=== PATIENT | female | born 1995 | race Caucasian/White ===

== ENCOUNTER 2019-07-01 23:23 | Inpatient (IN) | payer OTHER ==
[2019-07-02 00:56] VITALS: BMI 26.3
--- NOTE | 2019-07-02 00:56 | HP ---
COWS - Scale Resting Pulse: 2= [place] 101-120 Sweatin= No chills or Flushing Restless Observation: 1= Difficult to Sit Still Pupil Size: 0= Normal to Room Light Bone or Joint Aches: 4=Acute Joint/Muscle Pain Runny Nose/ Eye Tearin= Nasal Congestion GI Upset > 30mins: 2= Nausea/Diarrhea Tremor Observation: 0= None Yawning Observation: 1= 1-2x During Session Anxiety or Irritability: 2=Irritable/Anxious Goose Flesh Skin: 0=Smooth Skin COWS Score: 13 CIWA Score Nausea/Vomitin-No Nausea/No Vomiting Muscle Tremors: None Anxiety: 4-Mod. Anxious/Guarded Agitation: 4-Moderately Restless Paroxysmal Sweats: No Perspiration Orientation: 0-Oriented Tacttile Disturbances: 0-None Auditory Disturbances: 0-None Visual Disturbances: 2-Mild Sensitivity Headache: 2-Mild CIWA-Ar Total Score: 12 - Admission Criteria OAS Guidelines: Admission for Medically Managed Detox: Requires at least one of the followin. CIWA greater than 12 2. Seizures within the past 24 hours 3. Delirium tremens within the past 24 hours 4. Hallucinations within the past 24 hours 5. Acute intervention needed for co occurring medical disorder 6. Acute intervention needed for co occurring psychiatric disorder 7. Severe withdrawal that cannot be handled at a lower level of care (continued vomiting, continued diarrhea, abnormal vital signs) requiring intravenous medication and/or fluids 8. Patient presents the following: CIWA greater than 12 Admission Criteria Met: Admission criteria met Admission ROS [facility] Chief Complaint: c/o withdrawal sx's. seeking detox Allergies/Adverse Reactions: Allergies Allergy/AdvReac Type Severity Reaction Status Date / Time No Known Allergies Allergy Verified 07/02/19 01:21 History of Present Illness: 24 Y.O. FEMALE WITH HX/O OPIOID AND BENZO DEPENDENCE HERE FOR DETOX. CLIENT IS REFERRED BY SELF. STATES THIS IS HER FIRST TIME IN INPATIENT TXMENT. PRESENT WITH C/O WITHDRAWAL SX'S. USE OF HEROIN IS DAILY ALONG WITH XANAX. LAST USE EARLIER TODAY. DENIES ANY SIGNIFICANT CLEAN TIME. DRUG ABUSE STARTED AT AGE OF 14. DENIES HX/O SEIZURE, DRUG OVERDOSE BUT DOES ADMIT TO BLACK OUTS. DENIES IVDU. LIVES WITH ROOMATES EMPLOYED, DRUG COURT Exam Limitations: Physical Impairment (AMBUALTES WITH A CANE) - Ebola screening Have you traveled outside of the country in the last 21 days: No (N) Have you had contact with anyone from an Ebola affected area: No Do you have a fever: No - Review of Systems Constitutional: Chills, Loss of Appetite, Malaise, Night Sweats, Changes in sleep EENT: reports: No Symptoms Reported Respiratory: reports: No Symptoms reported Cardiac: reports: No Symptoms Reported, Edema (BLE) GI: reports: Constipated (BOTH DIARRHEA AND CONSTIPATION), Diarrhea, Nausea, Poor Appetite, Poor Fluid Intake, Abdominal cramping : reports: Dysuria (BURNING) Musculoskeletal: reports: Back Pain, Joint Pain Integumentary: reports: No Symptoms Reported Neuro: reports: Headache, Unsteady Gait (AMBUALTES WITH CANE) Endocrine: reports: No Symptoms Reported Hematology: reports: No Symptoms Reported Psychiatric: reports: Orientated x3, Agitated (IRRITABLE), Anxious, Depressed ( DENIES SI) Other Systems: Reviewed and Negative Patient History - Patient Medical History Hx Anemia: No Hx Asthma: No Hx Chronic Obstructive Pulmonary Disease (COPD): No Hx Cancer: No Hx Cardiac Disorders: No Hx Congestive Heart Failure: No Hx Hypertension: No Hx Hypercholesterolemia: No Hx Pacemaker: No HX Cerebrovascular Accident: No Hx Seizures: No Hx Dementia: No Hx Diabetes: No Hx Gastrointestinal Disorders: No Hx Liver Disease: No Hx Genitourinary Disorders: No Hx Sexually Transmitted Disorders: No Hx Renal Disease (ESRD): No Hx Thyroid Disease: No Hx Human Immunodeficiency Virus (HIV): No Hx Hepatitis C: No Hx Depression: No Hx Suicide Attempt: Yes (LAST ATTEMPT AGE 12) Hx Bipolar Disorder: No Hx Schizophrenia: No - Patient Surgical History Past Surgical History: No - PPD History Previous Implant?: Yes Documented Results: Negative w/o proof Implanted On Prior [facility] Admission?: No PPD to be Administered?: Yes - Reproductive History Patient is a Female of Child Bearing Age (11 -55 yrs old): Yes LMP comment: 5 MONTHS AGO Patient : No (NEG [facility] [place]) - Smoking Cessation Smoking history: Current every day smoker Have you smoked in the past 12 months: Yes Aproximately how many cigarettes per day: 20 Cigars Per Day: 0 Hx Chewing Tobacco Use: No Initiated information on smoking cessation: Yes 'Breaking Loose' booklet given: 07/02/19 - Substance & Tx. History Hx Alcohol Use: No Hx Substance Use: Yes Substance Use Type: Marijuana, Opiates (FEN/OPI), Tranquilizers (XANAX) Hx Substance Use Treatment: No - Substances abused Heroin Substance route: Inhalation Frequency: Daily Amount used: 4 BAGS Age of first use: 23 Date of last use: 06/30/19 Alprazolam (Xanax) Substance route: Oral Frequency: Daily Amount used: 4MG Age of first use: 14 Date of last use: 06/30/19 Marijuana/Hashish Substance route: Smoking Frequency: 3-6 times per week Amount used: 1 JOINT Age of first use: 14 Date of last use: 06/27/19 Family Disease History - Family Disease History Family Disease History: Heart Disease: Father ( FOR [place]), Other: Father, Mother ( BY OVERDOSE) Admission Physical Exam [facility] - Physical General Appearance: Yes: Moderate Distress, Irritable, Anxious HEENTM: Yes: EOMI, Normocephalic, Normal Voice, ANNABEL, Pharynx Normal Respiratory: Yes: Chest Non-Tender, Lungs Clear, Normal Breath Sounds, No Respiratory Distress, No Accessory Muscle Use Neck: Yes: No masses,lesions,Nodules, Supple, Trachea in good position Breast: Yes: Breast Exam Deferred Cardiology: Yes: Regular Rhythm, Regular Rate, S1, S2 Abdominal: Yes: Normal Bowel Sounds, Non Tender, Soft Genitourinary: Yes: Burning, Itiching Back: Yes: Normal Inspection Musculoskeletal: Yes: Other (UNSTEADY AGIT AMBULATES WITH CANE) Extremities: Yes: Normal Range of Motion, Non-Tender, Tremors, Pedal Edema (BLE NOT PITTING EDEMA) Neurological: Yes: Fully Oriented, Alert, Motor Strength 5/5, Depressed Affect Integumentary: Yes: Dry, Warm, Other (GENERALIZED AREAS TO ARMS LEGS CHEST WITH ABRASION THAT ARE HEALING FROM CONSTANT SCRATCHING OF SELF) Lymphatic: Yes: Within Normal Limits - Diagnostic (1) Opioid dependence with withdrawal Current Visit: Yes Status: Acute (2) Sedative, hypnotic or anxiolytic dependence with withdrawal, uncomplicated Current Visit: Yes Status: Acute (3) Cannabis dependence, uncomplicated Current Visit: Yes Status: Acute (4) Nicotine dependence Current Visit: Yes Status: Chronic Qualifiers: Nicotine product type: cigarettes (5) Substance induced mood disorder Current Visit: Yes Status: Acute (6) At risk for dehydration due to poor fluid intake Current Visit: Yes Status: Acute (7) Picking own skin Current Visit: Yes Status: Acute (8) Dysuria Current Visit: Yes Status: Acute Cleared for Admission [facility] - Detox or Rehab [facility] Level of Care: Medically Managed Detox Regimen/Protocol: Methadone/Valium Claeared for Rehab Admission: No Breathalyzer - Breathalyzer Breathalyzer: 0 Vital Signs - Vital Signs Vital signs refused: No Temperature: 97.6 F Temperature source: Oral Pulse Rate: 106 Respiratory Rate: 16 Blood Pressure: 126/69 BP Location: Right Arm Blood Pressure position: Sitting - Height Height: 5 ft 2 in - Weight Weight: 65.317 kg Weight measurement method: Standing scale - BMI Body Mass Index (BMI): 26.3 - Bowel Function Bowel Movement: No POC Urine test - Control test control: Yes - Result Urine Test Results: Negative - NO line present Urine Drug Screen - Control Is test valid?: Yes - Results Drug screen NEGATIVE: No Urine drug screen results: THC-Marijuana, MET-Methamphetamine, AMP-Amphetamines , FEN-Fentanyl, MOP-Opiates, BZO-Benzodiazepines Inpatient Rehab Admission - Rehab Decision to Admit Inpatient rehab admission?: No
[2019-07-02] MEDS ORDERED: METHADONE HCL 10 MG TABLET (FOR DETOX USE ONLY) PO ONE (01:17)
[2019-07-02] MEDS ORDERED: MELATONIN 5 MG TABLETS PO PRN (01:17)
[2019-07-02] MEDS ORDERED: ONDANSETRON *ODT* 4 MG TABLET SL PRN (01:17)
[2019-07-02] MEDS ORDERED: P-EPHED 60MG/TRIPROLIDI 2.5MG TABLET PO PRN (01:17)
[2019-07-02] MEDS ORDERED: IBUPROFEN 400 MG TABLET (FP) PO PRN (01:17)
[2019-07-02] MEDS ORDERED: DICYCLOMINE HCL 10 MG CAPSULE PO PRN (01:17)
[2019-07-02] MEDS ORDERED: hydrOXYzine PAMOATE 25 MG CAPSULE (FP) PO PRN (01:17)
[2019-07-02] MEDS ORDERED: cloNIDine HCL 0.1 MG TABLET PO PRN (01:17)
[2019-07-02] MEDS ORDERED: BISMUTH SUBSALICYLATE 524 MG/30 ML UD PO PRN (01:17)
[2019-07-02] MEDS ORDERED: guaiFENesin 200 MG/10 ML 10 ML UNIT-DOSE CUPS PO PRN (01:17)
[2019-07-02] MEDS ORDERED: MAGNESIUM CITRATE 300 ML BOTTLE PO PRN (01:17)
[2019-07-02] MEDS ORDERED: MENTHOL/PHENOL 1 EACH UD MM PRN (01:17)
[2019-07-02] MEDS ORDERED: ACETAMINOPHEN 325 MG TABLET (FP) PO PRN ×2 (01:17)
[2019-07-02] MEDS ORDERED: MAGNESIUM HYDROX 2400MG/30ML ORAL SUSPENSION 30 ML CUP PO PRN (01:17)
[2019-07-02] MEDS ORDERED: MAG HYDROX/AL HYDROX/SIMETH 30 ML UNIT-DOSE CUP PO PRN (01:17)
[2019-07-02] MEDS: diazePAM 5 MG TABLET PO PRN ×3 (02:41→17:26)
[2019-07-02] MEDS: NICOTINE POLACRILEX 2 MG GUM BUC PRN ×5 (03:43→22:07)
[2019-07-02] MEDS: diazePAM 5 MG TABLET PO SCH ×3 (06:11→22:03)
[2019-07-02] MEDS ORDERED: METHADONE HCL 5 MG TABLET (FOR DETOX USE ONLY) PO ONE (10:00)
[2019-07-02] MEDS: PRENATAL VITAMINS W/ FOLIC ACID TABLET (FP) PO SCH (10:51)
[2019-07-02] MEDS: NICOTINE 21 MG/24 HOURS TOPICAL PATCH TD SCH (10:52)
[2019-07-02 10:57] LABS: HEMATOCRIT 33.7 % (32.4-45.2); HEMOGLOBIN 11.5 GM/dL (10.7-15.3); MEAN CELL VOLUME 91.2 fl (80-96); MEAN PLT VOLUME 7.3 fl (7.5-11.1); WHITE BLOOD COUNT 5.6 K/mm3 (4.0-10.0)
[2019-07-02 11:03] LABS: ALBUMIN 3.2 g/dl (3.4-5.0); BILIRUBIN,TOTAL 0.3 mg/dL (0.2-1); BLOOD UREA NITROGEN 11.3 mg/dL (7-18); CALCIUM 8.7 mg/dL (8.5-10.1); CREATININE 0.8 mg/dL (0.55-1.3); POTASSIUM 3.3 mmol/L (3.5-5.1)
[2019-07-02 11:22] LABS: PLATELET COUNT 423 K/MM3 (134-434)
--- NOTE | 2019-07-02 12:10 | PN ---
[facility] CIWA - CIWA Score Nausea/Vomitin-No Nausea/No Vomiting Muscle Tremors: None Anxiety: 4-Mod. Anxious/Guarded Agitation: 0-Normal Activity Paroxysmal Sweats: No Perspiration Orientation: 2-Disoriented Date<2 days Tacttile Disturbances: 1-Very Mild Itch/Numbness Auditory Disturbances: 2-Mild Harshness/Frighten Visual Disturbances: 3-Moderate Sensitivity Headache: 0-None Present CIWA-Ar Total Score: 12 S COWS - Scale Resting Pulse: 2= [place] 101-120 Sweatin= No chills or Flushing Restless Observation: 0= Sits Still Pupil Size: 0= Normal to Room Light Bone or Joint Aches: 2= Severe Diffuse Aches Runny Nose/ Eye Tearin= Nasal Congestion GI Upset > 30mins: 0= None Tremor Observation of Outstretched Hands: 0= None Yawning Observation: 1= 1-2x During Session Anxiety or Irritability: 2=Irritable/Anxious Goose Flesh Skin: 3=Piloerection COWS Score: 11 S Progress Note (SOAP) Subjective: Body Aches, Anxious, Nasal Congestion, Fatigue. Objective: PATIENT A & O X 2 (UNCERTAIN ABOUT CURRENT DAY / DATE). IN NO ACUTE DISTRESS. 07/02/19 12:12 Vital Signs Temperature 97.6 F 07/02/19 09:20 Pulse Rate 106 H 07/02/19 09:20 Respiratory Rate 18 07/02/19 09:20 Blood Pressure 112/77 07/02/19 09:20 O2 Sat by Pulse Oximetry (%) Laboratory Tests 07/02/19 07/02/19 08:00 08:00 WBC 5.6 RBC 3.70 Hgb 11.5 Hct 33.7 MCV 91.2 MCH 31.0 MCHC 34.0 RDW 13.0 Plt Count 423 MPV 7.3 L Sodium 140 Potassium 3.3 L Chloride 100 Carbon Dioxide 35 H Anion Gap 6 L BUN 11.3 Creatinine 0.8 Est GFR (CKD-EPI)AfAm 119.60 Est GFR (CKD-EPI)NonAf 103.19 Random Glucose 95 Calcium 8.7 Total Bilirubin 0.3 AST 38 H ALT 25 Alkaline Phosphatase 74 Total Protein 6.0 L Albumin 3.2 L LABS NOTED. Assessment: 07/02/19 12:14 WITHDRAWAL SYMPTOMS. HYPOKALEMIA. Plan: CONTINUE DETOX. K-DUR, 20 MEQ PO BID FOR LOW K LEVEL NOTED NO DETOX ADMISSION LABORATORY ASSESSMENT. REPEAT K LEVEL ORDERED FOR 07/04/2019 TO SEE IF ANY CHANGE IN COMPARISON TO DETOX ADMISSION K LEVEL.
[2019-07-02] MEDS: POTASSIUM CHLORIDE TABS 20 MEQ TABLET.ER (FP) PO SCH (17:26)
[2019-07-02] MEDS: METHOCARBAMOL 500 MG TABLET PO PRN (19:19)
--- NOTE | 2019-07-02 20:17 | PN ---
[facility] Progress Note Note: Patient is referred for swelling and pain to tke left lower leg. As per patient , this started yesterday but also reports having x-ray done at [facility] which was negative. The affected area is warm, pain is rated 7-8/10. She denies fever, chills, chest pain or SOB General Appearance: Mild distress PE Vital Signs 07/02/19 07/02/19 13:26 17:18 Temperature 97.7 F 96.8 F L Pulse Rate 104 H 97 H Respiratory 20 16 Rate Blood Pressure 99/55 L 102/64 Chest: Lungs clear in all field CVS:S1S12, RRR Ext: Swollen LLE, warm to touch, linear scratch reji to the collado Plan-Evaluation in the ED. Patient has refused to go to the ED Motrin increased to 600mg every 6hrs Encouraged to elevate the limb Monitoring ongoing
[2019-07-02] MEDS: THIAMINE HCL 100 MG TABLET (FP) PO SCH (22:03)
[2019-07-02] MEDS: IBUPROFEN 600 MG TABLET (FP) PO PRN (22:05)
[2019-07-03] MEDS: diazePAM 5 MG TABLET PO SCH ×2 (06:13→17:53)
[2019-07-03] MEDS: IBUPROFEN 600 MG TABLET (FP) PO PRN ×3 (06:14→17:56)
[2019-07-03] MEDS ORDERED: METHADONE HCL 10 MG TABLET (FOR DETOX USE ONLY) ONE (08:22)
[2019-07-03] MEDS ORDERED: METHADONE HCL 5 MG TABLET (FOR DETOX USE ONLY) ONE (08:23)
--- NOTE | 2019-07-03 09:05 | PN ---
[facility] CIWA - CIWA Score Nausea/Vomitin-No Nausea/No Vomiting Muscle Tremors: 2 Anxiety: 3 Agitation: 2 Paroxysmal Sweats: 1-Minimal Palms Moist Orientation: 0-Oriented Tacttile Disturbances: 0-None Auditory Disturbances: 0-None Visual Disturbances: 0-None Headache: 1-Very Mild CIWA-Ar Total Score: 9 BHS COWS - Scale Resting Pulse: 1= [place] 81-100 Sweatin= Chills/Flushing Restless Observation: 0= Sits Still Pupil Size: 0= Normal to Room Light Bone or Joint Aches: 1= Mild Discomfort Runny Nose/ Eye Tearin= Nasal Congestion GI Upset > 30mins: 1= Stomach Cramp Tremor Observation of Outstretched Hands: 2= Slight Tremor Visible Yawning Observation: 1= 1-2x During Session Anxiety or Irritability: 1=Feels Anxious/Irritable Goose Flesh Skin: 0=Smooth Skin COWS Score: 9 S Progress Note (SOAP) Subjective: 24 years old female admitted on 07/02/19 for acute benzo and opiate withdrawal sx management mild tremor sweating and joints and general muscles pain 3/10 doing well with valium and methadone detox regimen sitting on bed eating breakfast lower extremities mild indentation edema treated at [facility] ER +2 pedal pulses bilaterally ankles passive full range of motion denies pain during the motion no shortness of breath breathe even and ease Objective: 07/03/19 09:10 Vital Signs Temperature 97.0 F L 07/03/19 06:30 Pulse Rate 84 07/03/19 06:30 Respiratory Rate 18 07/03/19 06:30 Blood Pressure 102/67 07/03/19 06:30 O2 Sat by Pulse Oximetry (%) Laboratory Last Values WBC 5.6 K/mm3 (4.0-10.0) 07/02/19 08:00 RBC 3.70 M/mm3 (3.60-5.2) 07/02/19 08:00 Hgb 11.5 GM/dL (10.7-15.3) 07/02/19 08:00 Hct 33.7 % (32.4-45.2) 07/02/19 08:00 MCV 91.2 fl (80-96) 07/02/19 08:00 MCH 31.0 pg (25.7-33.7) 07/02/19 08:00 MCHC 34.0 g/dl (32.0-36.0) 07/02/19 08:00 RDW 13.0 % (11.6-15.6) 07/02/19 08:00 Plt Count 423 K/MM3 (134-434) 07/02/19 08:00 MPV 7.3 fl (7.5-11.1) L 07/02/19 08:00 Sodium 140 mmol/L (136-145) 07/02/19 08:00 Potassium 3.3 mmol/L (3.5-5.1) L 07/02/19 08:00 Chloride 100 mmol/L (98-107) 07/02/19 08:00 Carbon Dioxide 35 mmol/L (21-32) H 07/02/19 08:00 Anion Gap 6 MMOL/L (8-16) L 07/02/19 08:00 BUN 11.3 mg/dL (7-18) 07/02/19 08:00 Creatinine 0.8 mg/dL (0.55-1.3) 07/02/19 08:00 Est GFR (CKD-EPI)AfAm 119.60 07/02/19 08:00 Est GFR (CKD-EPI)NonAf 103.19 07/02/19 08:00 Random Glucose 95 mg/dL (74-106) 07/02/19 08:00 Calcium 8.7 mg/dL (8.5-10.1) 07/02/19 08:00 Total Bilirubin 0.3 mg/dL (0.2-1) 07/02/19 08:00 AST 38 U/L (15-37) H 07/02/19 08:00 ALT 25 U/L (13-61) 07/02/19 08:00 Alkaline Phosphatase 74 U/L (45-117) 07/02/19 08:00 Total Protein 6.0 g/dl (6.4-8.2) L 07/02/19 08:00 Albumin 3.2 g/dl (3.4-5.0) L 07/02/19 08:00 RPR Titer Nonreactive (NONREACTIVE) 07/02/19 08:00 lab noted low K+ continue K+ 20meq bid repeat K+ 07/04/19 07/03/19 09:11 Assessment: 07/03/19 09:11 benzo and opiate withdrawal sx legs elevation Plan: continue valium and methadone detox regimen discuss the risks of fatality of benzo mixed with opiate
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
[2019-07-03] MEDS ORDERED: METHADONE (DETOX) 20 MG, METHADONE (DETOX) 5 MG PO ONE (10:00)
[2019-07-03] MEDS: PRENATAL VITAMINS W/ FOLIC ACID TABLET (FP) PO SCH (10:07)
[2019-07-03] MEDS: NICOTINE 21 MG/24 HOURS TOPICAL PATCH TD SCH (10:07)
[2019-07-03] MEDS: POTASSIUM CHLORIDE TABS 20 MEQ TABLET.ER (FP) PO SCH ×2 (10:07→17:53)
[2019-07-03] MEDS: NICOTINE POLACRILEX 2 MG GUM BUC PRN ×4 (10:08→22:04)
[2019-07-03] MEDS: METHOCARBAMOL 500 MG TABLET PO PRN ×2 (10:08→22:04)
[2019-07-03] MEDS: diazePAM 5 MG TABLET PO PRN ×2 (12:30→22:02)
[2019-07-03] MEDS ORDERED: BISACODYL 5 MG TABLET.DR (FP) PO ONE (19:55)
[2019-07-03] MEDS: MELATONIN 5 MG TABLETS PO PRN (22:00)
[2019-07-03] MEDS: THIAMINE HCL 100 MG TABLET (FP) PO SCH (22:00)
[2019-07-04] MEDS: METHOCARBAMOL 500 MG TABLET PO PRN ×3 (05:55→22:09)
[2019-07-04] MEDS: IBUPROFEN 600 MG TABLET (FP) PO PRN (05:56)
[2019-07-04] MEDS ORDERED: diazePAM 5 MG TABLET PO ONE (06:00)
[2019-07-04] MEDS ORDERED: METHADONE HCL 10 MG TABLET (FOR DETOX USE ONLY) PO ONE (10:00)
[2019-07-04] MEDS: PRENATAL VITAMINS W/ FOLIC ACID TABLET (FP) PO SCH (10:22)
[2019-07-04] MEDS: POTASSIUM CHLORIDE TABS 20 MEQ TABLET.ER (FP) PO SCH (10:23)
[2019-07-04] MEDS: NICOTINE 21 MG/24 HOURS TOPICAL PATCH TD SCH (10:24)
[2019-07-04] MEDS: diazePAM 5 MG TABLET PO PRN ×2 (10:27→18:24)
[2019-07-04] MEDS: NICOTINE POLACRILEX 2 MG GUM BUC PRN ×3 (10:28→22:10)
--- NOTE | 2019-07-04 10:52 | PN ---
S CIWA - CIWA Score Nausea/Vomitin-Mild Nausea/No Vomiting Muscle Tremors: 2 Anxiety: 2 Agitation: 2 Paroxysmal Sweats: 1-Minimal Palms Moist Orientation: 0-Oriented Tacttile Disturbances: 0-None Auditory Disturbances: 0-None Visual Disturbances: 0-None Headache: 0-None Present CIWA-Ar Total Score: 8 BHS COWS - Scale Resting Pulse: 0= [place] 80 or Below Sweatin= Chills/Flushing Restless Observation: 0= Sits Still Pupil Size: 1= Pupils >than Normal Bone or Joint Aches: 1= Mild Discomfort Runny Nose/ Eye Tearin= Nasal Congestion GI Upset > 30mins: 1= Stomach Cramp Tremor Observation of Outstretched Hands: 1= Tremor [place], Not Seen Yawning Observation: 1= 1-2x During Session Anxiety or Irritability: 1=Feels Anxious/Irritable Goose Flesh Skin: 0=Smooth Skin COWS Score: 8 S Progress Note (SOAP) Subjective: doing well with valium and methadone detox regimen right ankle equal size of the left patient sitting on edge of the bed eating breakfast no trouble chewing nor swallowing c/o indigestion discontinue motrin begin zantac abdomen soft Objective: 07/04/19 11:06 Vital Signs Temperature 98.4 F 07/04/19 09:12 Pulse Rate 75 07/04/19 09:12 Respiratory Rate 18 07/04/19 09:12 Blood Pressure 115/73 07/04/19 09:12 O2 Sat by Pulse Oximetry (%) Laboratory Last Values WBC 5.6 K/mm3 (4.0-10.0) 07/02/19 08:00 RBC 3.70 M/mm3 (3.60-5.2) 07/02/19 08:00 Hgb 11.5 GM/dL (10.7-15.3) 07/02/19 08:00 Hct 33.7 % (32.4-45.2) 07/02/19 08:00 MCV 91.2 fl (80-96) 07/02/19 08:00 MCH 31.0 pg (25.7-33.7) 07/02/19 08:00 MCHC 34.0 g/dl (32.0-36.0) 07/02/19 08:00 RDW 13.0 % (11.6-15.6) 07/02/19 08:00 Plt Count 423 K/MM3 (134-434) 07/02/19 08:00 MPV 7.3 fl (7.5-11.1) L 07/02/19 08:00 Sodium 140 mmol/L (136-145) 07/02/19 08:00 Potassium 4.4 mmol/L (3.5-5.1) 07/04/19 07:00 Chloride 100 mmol/L (98-107) 07/02/19 08:00 Carbon Dioxide 35 mmol/L (21-32) H 07/02/19 08:00 Anion Gap 6 MMOL/L (8-16) L 07/02/19 08:00 BUN 11.3 mg/dL (7-18) 07/02/19 08:00 Creatinine 0.8 mg/dL (0.55-1.3) 07/02/19 08:00 Est GFR (CKD-EPI)AfAm 119.60 07/02/19 08:00 Est GFR (CKD-EPI)NonAf 103.19 07/02/19 08:00 Random Glucose 95 mg/dL (74-106) 07/02/19 08:00 Calcium 8.7 mg/dL (8.5-10.1) 07/02/19 08:00 Total Bilirubin 0.3 mg/dL (0.2-1) 07/02/19 08:00 AST 38 U/L (15-37) H 07/02/19 08:00 ALT 25 U/L (13-61) 07/02/19 08:00 Alkaline Phosphatase 74 U/L (45-117) 07/02/19 08:00 Total Protein 6.0 g/dl (6.4-8.2) L 07/02/19 08:00 Albumin 3.2 g/dl (3.4-5.0) L 07/02/19 08:00 RPR Titer Nonreactive (NONREACTIVE) 07/02/19 08:00 lab noted Assessment: 07/04/19 11:06 benzo and opiate withdrawal sx alert oriented x 3 ambulating from bed to bathroom steady gait Plan: continue valium and methadone detox regimen zantac 150 mg bid
--- NOTE | 2019-07-04 13:02 | EKG ---
Test Reason : Blood Pressure : / mmHG Vent. Rate : 098 BPM Atrial Rate : 098 BPM P-R Int : 200 ms QRS Dur : 076 ms QT Int : 378 ms P-R-T Axes : 046 056 028 degrees QTc Int : 482 ms NORMAL SINUS RHYTHM PROLONGED QT ABNORMAL ECG NO PREVIOUS ECGS AVAILABLE Confirmed by COMFORT SALAZAR MD ([id number]) on 07/04/2019 1:02:18 PM Referred By: VALDO Confirmed By:COMFORT SALAZAR MD
[2019-07-04] MEDS: THIAMINE HCL 100 MG TABLET (FP) PO SCH (22:06)
[2019-07-04] MEDS: MELATONIN 5 MG TABLETS PO PRN (22:06)
[2019-07-05] MEDS ORDERED: METHADONE HCL 10 MG TABLET (FOR DETOX USE ONLY) ONE (09:19)
[2019-07-05] MEDS ORDERED: METHADONE HCL 5 MG TABLET (FOR DETOX USE ONLY) ONE (09:20)
[2019-07-05] MEDS ORDERED: METHADONE (DETOX) 10 MG, METHADONE (DETOX) 5 MG PO ONE (10:00)
--- NOTE | 2019-07-05 10:17 | PN ---
[facility] CIWA - CIWA Score Nausea/Vomitin-No Nausea/No Vomiting Muscle Tremors: 2 Anxiety: 1-Mildly Anxious Agitation: 1-Slight > Activity Paroxysmal Sweats: No Perspiration Orientation: 0-Oriented Tacttile Disturbances: 0-None Auditory Disturbances: 0-None Visual Disturbances: 0-None Headache: 0-None Present CIWA-Ar Total Score: 4 S COWS - Scale Resting Pulse: 1= [place] 81-100 Sweatin= Chills/Flushing Restless Observation: 0= Sits Still Pupil Size: 0= Normal to Room Light Bone or Joint Aches: 1= Mild Discomfort Runny Nose/ Eye Tearin= None GI Upset > 30mins: 0= None Tremor Observation of Outstretched Hands: 1= Tremor [place], Not Seen Yawning Observation: 0= None Anxiety or Irritability: 0= None Goose Flesh Skin: 0=Smooth Skin COWS Score: 4 [facility] Progress Note (SOAP) Subjective: doing well with valium and methadone detox regimen left lower leg ankle equal size as right ankle c/o sweating and tremor, ate 90% breakfast resting on bed comfortably Objective: 07/05/19 10:15 Vital Signs Temperature 97.9 F 07/05/19 09:14 Pulse Rate 81 07/05/19 09:14 Respiratory Rate 18 07/05/19 09:14 Blood Pressure 104/65 07/05/19 09:14 O2 Sat by Pulse Oximetry (%) Laboratory Last Values WBC 5.6 K/mm3 (4.0-10.0) 07/02/19 08:00 RBC 3.70 M/mm3 (3.60-5.2) 07/02/19 08:00 Hgb 11.5 GM/dL (10.7-15.3) 07/02/19 08:00 Hct 33.7 % (32.4-45.2) 07/02/19 08:00 MCV 91.2 fl (80-96) 07/02/19 08:00 MCH 31.0 pg (25.7-33.7) 07/02/19 08:00 MCHC 34.0 g/dl (32.0-36.0) 07/02/19 08:00 RDW 13.0 % (11.6-15.6) 07/02/19 08:00 Plt Count 423 K/MM3 (134-434) 07/02/19 08:00 MPV 7.3 fl (7.5-11.1) L 07/02/19 08:00 Sodium 140 mmol/L (136-145) 07/02/19 08:00 Potassium 4.4 mmol/L (3.5-5.1) 07/04/19 07:00 Chloride 100 mmol/L (98-107) 07/02/19 08:00 Carbon Dioxide 35 mmol/L (21-32) H 07/02/19 08:00 Anion Gap 6 MMOL/L (8-16) L 07/02/19 08:00 BUN 11.3 mg/dL (7-18) 07/02/19 08:00 Creatinine 0.8 mg/dL (0.55-1.3) 07/02/19 08:00 Est GFR (CKD-EPI)AfAm 119.60 07/02/19 08:00 Est GFR (CKD-EPI)NonAf 103.19 07/02/19 08:00 Random Glucose 95 mg/dL (74-106) 07/02/19 08:00 Calcium 8.7 mg/dL (8.5-10.1) 07/02/19 08:00 Total Bilirubin 0.3 mg/dL (0.2-1) 07/02/19 08:00 AST 38 U/L (15-37) H 07/02/19 08:00 ALT 25 U/L (13-61) 07/02/19 08:00 Alkaline Phosphatase 74 U/L (45-117) 07/02/19 08:00 Total Protein 6.0 g/dl (6.4-8.2) L 07/02/19 08:00 Albumin 3.2 g/dl (3.4-5.0) L 07/02/19 08:00 POC Urine HCG, Qual Negative 07/02/19 01:20 RPR Titer Nonreactive (NONREACTIVE) 07/02/19 08:00 lab noted Assessment: 07/05/19 10:15 benzo and opiate withdrawal sx alert oriented x 3 limited conversation with staff no edematous on both ankles ambulating from bed to bathroom steady gait 07/05/19 10:16 Plan: continue valium and methadone detox regimen
[2019-07-05] MEDS: NICOTINE 21 MG/24 HOURS TOPICAL PATCH TD SCH (10:51)
[2019-07-05] MEDS: PRENATAL VITAMINS W/ FOLIC ACID TABLET (FP) PO SCH (10:51)
[2019-07-05] MEDS ORDERED: RANITIDINE HCL 150 MG TABLET (FP) PO SCH (11:30)
--- NOTE | 2019-07-05 13:16 | DS ---
[facility] Detox Discharge Summary Admission Date: 07/02/19 Discharge Date: 07/05/19 - History Present History: Opioid Dependence, Sedative Dependence Additional Comments: 24 years old female admitted on 07/02/19 for benzo and opiate withdrawal sx management doing well with valium and methadone detox regimen no complication through out the detox stay "methadone is too strong for me" feeling better today prefers to go home bringing personal belonging to [facility] transportation arranged patient had lunch and showered - Physical Exam Results Vital Signs: Vital Signs Temperature 97.9 F 07/05/19 09:14 Pulse Rate 81 07/05/19 09:14 Respiratory Rate 18 07/05/19 09:14 Blood Pressure 104/65 07/05/19 09:14 O2 Sat by Pulse Oximetry (%) Pertinent Admission Physical Exam Findings: benzo and opiate withdrawal sx Laboratory Last Values WBC 5.6 K/mm3 (4.0-10.0) 07/02/19 08:00 RBC 3.70 M/mm3 (3.60-5.2) 07/02/19 08:00 Hgb 11.5 GM/dL (10.7-15.3) 07/02/19 08:00 Hct 33.7 % (32.4-45.2) 07/02/19 08:00 MCV 91.2 fl (80-96) 07/02/19 08:00 MCH 31.0 pg (25.7-33.7) 07/02/19 08:00 MCHC 34.0 g/dl (32.0-36.0) 07/02/19 08:00 RDW 13.0 % (11.6-15.6) 07/02/19 08:00 Plt Count 423 K/MM3 (134-434) 07/02/19 08:00 MPV 7.3 fl (7.5-11.1) L 07/02/19 08:00 Sodium 140 mmol/L (136-145) 07/02/19 08:00 Potassium 4.4 mmol/L (3.5-5.1) 07/04/19 07:00 Chloride 100 mmol/L (98-107) 07/02/19 08:00 Carbon Dioxide 35 mmol/L (21-32) H 07/02/19 08:00 Anion Gap 6 MMOL/L (8-16) L 07/02/19 08:00 BUN 11.3 mg/dL (7-18) 07/02/19 08:00 Creatinine 0.8 mg/dL (0.55-1.3) 07/02/19 08:00 Est GFR (CKD-EPI)AfAm 119.60 07/02/19 08:00 Est GFR (CKD-EPI)NonAf 103.19 07/02/19 08:00 Random Glucose 95 mg/dL (74-106) 07/02/19 08:00 Calcium 8.7 mg/dL (8.5-10.1) 07/02/19 08:00 Total Bilirubin 0.3 mg/dL (0.2-1) 07/02/19 08:00 AST 38 U/L (15-37) H 07/02/19 08:00 ALT 25 U/L (13-61) 07/02/19 08:00 Alkaline Phosphatase 74 U/L (45-117) 07/02/19 08:00 Total Protein 6.0 g/dl (6.4-8.2) L 07/02/19 08:00 Albumin 3.2 g/dl (3.4-5.0) L 07/02/19 08:00 POC Urine HCG, Qual Negative 07/02/19 01:20 RPR Titer Nonreactive (NONREACTIVE) 07/02/19 08:00 lab noted - Treatment Hospital Course: Detox Protocol Followed, Detoxed Safely, Responded well, Discharged Condition Good, Rehab Referral Accepted Patient has Accepted [facility] Ref[facility] - Medication Discharge Medications: Ambulatory Orders NK [No Known Home Medication] 07/02/19 - Diagnosis (1) Opioid dependence with withdrawal Current Visit: Yes Status: Acute (2) Sedative, hypnotic or anxiolytic dependence with withdrawal, uncomplicated Current Visit: Yes Status: Acute (3) Substance induced mood disorder Current Visit: Yes Status: Suspected (4) Nicotine dependence Current Visit: Yes Status: Acute Qualifiers: Nicotine product type: cigarettes Substance use status: in withdrawal Qualified Code(s): F17.213 - Nicotine dependence, cigarettes, with withdrawal - AMA Did Patient Leave Against Medical Advice: No
[2019-07-05 13:21] VITALS: BP 108/71; PULSE 71; TEMP 98.8
[2019-07-06] MEDS ORDERED: METHADONE HCL 10 MG TABLET (FOR DETOX USE ONLY) PO ONE (10:00)
[2019-07-07] MEDS ORDERED: METHADONE HCL 5 MG TABLET (FOR DETOX USE ONLY) PO ONE (06:00)
== END 2019-07-05 15:06 | disposition home or self-care (01) | DRG 773 ==
LOC: YASAS 23:23 → Y3N 07-02 00:11
PROVIDERS: ADMIT Surgery; ATTEND Surgery
PROC: HZ2ZZZZ Detoxification Services for Substance Abuse Treatment (ICD-10-PCS; principal; 2019-07-02)
DX: F11.23 Opioid dependence with withdrawal (principal); F13.230 Sedative, hypnotic or anxiolytic dependence with withdrawal, uncomplicated; F12.20 Cannabis dependence, uncomplicated; F17.213 Nicotine dependence, cigarettes, with withdrawal; F19.24 Other psychoactive substance dependence with psychoactive substance-induced mood disorder; F19.282 Other psychoactive substance dependence with psychoactive substance-induced sleep disorder; F42.4 Excoriation (skin-picking) disorder; E87.6 Hypokalemia; R63.8 Other symptoms and signs concerning food and fluid intake; R30.0 Dysuria; Z91.5 Personal history of self-harm
CPT/HCPCS: 36415; 80053; 81025; 84132; 85027; 86593; 93005; 93010

== ENCOUNTER 2024-07-22 12:46 | Inpatient (IN) | payer OTHER ==
[2024-07-22 13:41] VITALS: BMI 27.4
[2024-07-22] MEDS ORDERED: NALOXONE (NARCAN) HCL 4 MG/0.1 ML SPRAY NS PRN (13:57)
[2024-07-22] MEDS ORDERED: MAG HYDROX/AL HYDROX/SIMETH 30 ML UNIT-DOSE CUP PO PRN (13:57)
[2024-07-22] MEDS ORDERED: NALOXONE HCL 0.4 MG/ML VIAL IM PRN (13:57)
[2024-07-22] MEDS ORDERED: LOPERAMIDE HCL 2 MG CAPSULE PO PRN (13:57)
[2024-07-22] MEDS ORDERED: MAGNESIUM HYDROX 2400MG/30ML ORAL SUSPENSION 30 ML CUP PO PRN (13:57)
[2024-07-22] MEDS ORDERED: POLYETHYLENE GLYCOL (HEALTHYLAX) 3350 17 GM PACKET PO PRN (13:57)
[2024-07-22] MEDS ORDERED: P-EPHED 60MG/TRIPROLIDI 2.5MG TABLET PO PRN (13:57)
[2024-07-22] MEDS ORDERED: hydrOXYzine PAMOATE 25 MG CAPSULE (FP) PO PRN (13:57)
[2024-07-22] MEDS ORDERED: ACETAMINOPHEN 325 MG TABLET (FP) PO PRN (13:57)
[2024-07-22] MEDS ORDERED: NICOTINE POLACRILEX 2 MG LOZENGE BC PRN (13:57)
[2024-07-22] MEDS ORDERED: ONDANSETRON *ODT* 4 MG TABLET SL PRN (13:57)
[2024-07-22] MEDS ORDERED: BISMUTH SUBSALICYLATE 524 MG/30 ML PO PRN (13:57)
[2024-07-22] MEDS ORDERED: guaiFENesin 600 MG TABLET.ER (FP) PO PRN (13:57)
[2024-07-22] MEDS ORDERED: BENZONATATE 200 MG CAPSULE PO PRN (13:57)
[2024-07-22] MEDS ORDERED: IBUPROFEN 400 MG TABLET (FP) PO PRN (13:57)
[2024-07-22] MEDS ORDERED: BENZOCAINE/MENTHOL (CHLORASEPTIC ) LOZENGE MM PRN (13:57)
[2024-07-22] MEDS ORDERED: cloNIDine HCL 0.1 MG TABLET PO PRN (21:56)
[2024-07-22] MEDS ORDERED: TRIMETHOBENZAMIDE HCL 200MG/2ML INJ IM PRN (21:57)
[2024-07-22] MEDS: methaDONE HCL 10 MG TABLET (FOR DETOX USE ONLY) PO ONE ×2 (22:08→22:11)
[2024-07-22] MEDS: THIAMINE 100 MG TABLET PO SCH (22:11)
[2024-07-22] MEDS: MELATONIN 5 MG TABLETS PO SCH (22:11)
[2024-07-22] MEDS: diazePAM 5 MG TABLET PO SCH (22:13)
[2024-07-23] MEDS: DICYCLOMINE HCL 10 MG CAPSULE PO PRN (06:00)
[2024-07-23] MEDS: IBUPROFEN 600 MG TABLET (FP) PO PRN (09:15)
[2024-07-23] MEDS: METHOCARBAMOL 500 MG TABLET PO PRN (09:15)
[2024-07-23] MEDS: PRENATAL VITAMINS W/ FOLIC ACID TABLET (FP) PO SCH (10:22)
[2024-07-23 11:33] LABS: EPI CELLS >36 /uL (0-25.1); HYALINE CASTS 2 /uL (0-3.1); PH,URINE 6.5 (5.0-8.0); URINE APPEARANCE CLOUDY; URINE BACTERIA 1282 /uL (0-1359); URINE BILIRUBIN NEGATIVE (NEGATIVE); URINE COLOR YELLOW; URINE GLUCOSE (UA) NEGATIVE (NEGATIVE); URINE KETONE NEGATIVE (NEGATIVE); URINE LEUK ESTERASE TRACE (NEGATIVE); URINE NITRITE NEGATIVE (NEGATIVE); URINE PROTEIN NEGATIVE (NEGATIVE); URINE RBC 7 /uL (0-23.9); URINE UROBILINOGEN 0.2 mg/dL (0.2-1.0); URINE WBC 41 /uL (0-25.8)
[2024-07-23 11:33] LABS: HEMATOCRIT 33.2 % (32.4-45.2); HEMOGLOBIN 11.4 GM/dL (10.7-15.3); MCH 31.5 pg (25.7-33.7); MCHC 34.2 g/dl (32.0-36.0); MEAN CELL VOLUME 92.2 fl (80-96); MEAN PLT VOLUME 7.7 fl (7.5-11.1); PLATELET COUNT 283 10^3/uL (134-434); RDW 12.4 % (11.6-15.6); WHITE BLOOD COUNT 4.3 K/mm3 (4.0-10.0)
[2024-07-23 11:40] LABS: POTASSIUM 3.5 mmol/L (3.5-5.1)
[2024-07-23 11:42] LABS: CALCIUM 8.8 mg/dL (8.5-10.1)
[2024-07-23 11:43] LABS: ALBUMIN 2.9 g/dl (3.4-5.0); BLOOD UREA NITROGEN 11.3 mg/dL (7-18)
[2024-07-23 11:46] LABS: CREATININE 0.5 mg/dL (0.55-1.3)
[2024-07-23 11:48] LABS: BILIRUBIN,TOTAL 0.3 mg/dL (0.2-1); TOT PROT 5.5 g/dl (6.4-8.2)
[2024-07-23 12:27] LABS: HIV INTERPRETATION NEGATIVE (NEGATIVE)
[2024-07-23] MEDS: diazePAM 5 MG TABLET PO PRN (14:53)
[2024-07-23] MEDS: NICOTINE POLACRILEX 2 MG GUM BUC PRN (22:26)
[2024-07-24] MEDS: diazePAM 5 MG TABLET PO SCH (06:01)
[2024-07-24 09:13] VITALS: BP 115/75; PULSE 58; RESP 16; TEMP 98.1
[2024-07-24] MEDS: methaDONE HCL 10 MG TABLET (FOR DETOX USE ONLY) PO ONE (09:35)
[2024-07-25] MEDS ORDERED: diazePAM 5 MG TABLET PO SCH (06:00)
[2024-07-26] MEDS ORDERED: diazePAM 5 MG TABLET PO ONE (06:00)
[2024-07-26] MEDS ORDERED: methaDONE HCL 10 MG TABLET (FOR DETOX USE ONLY) PO ONE (10:00)
== END 2024-07-24 10:54 | disposition left against medical advice (07) | DRG 770 ==
LOC: YASAS 12:46 → Y3N 15:04
PROVIDERS: ADMIT Allergy & Immunology; ATTEND Surgery
PROC: HZ2ZZZZ Detoxification Services for Substance Abuse Treatment (ICD-10-PCS; principal; 2024-07-22)
DX: F11.23 Opioid dependence with withdrawal (principal); F13.230 Sedative, hypnotic or anxiolytic dependence with withdrawal, uncomplicated; F12.20 Cannabis dependence, uncomplicated; F17.210 Nicotine dependence, cigarettes, uncomplicated; F32.A Depression, unspecified; G47.00 Insomnia, unspecified
CPT/HCPCS: 36415; 80053; 80305; 80307; 81003; 81025; 85027; 86780; 86803; 87389; 93005; 93010